=== PATIENT | female | born 1990 | race African-American/Black ===

== ENCOUNTER 2018-09-01 11:59 | Observation (INO) | payer MEDICAID ==
[~2018-09-01] VITALS: Ht 172.7 cm; Wt 72.1 kg
[~2018-09-01 11:59] MED LIST: FERR-43 PO; PREN-88 PO
[2018-09-01] MEDS ORDERED: LACTATED RINGERS 1,000 ML IV SCH (13:20)
[2018-09-01 13:59] LABS: BASOPHILS % 0.3 % (0.0-2.0); HEMATOCRIT. 34.1 % (36.0-48.0); HEMOGLOBIN. 11.2 g/dL (12.0-16.0); LYMPHOCYTES % 13.8 % (20.0-50.0); MEAN CORPUSCULAR HEMOGLOBIN 26.7 pg (28.0-32.0); MEAN CORPUSCULAR VOLUME 81.2 fL (81.0-99.0); MEAN PLATELET VOLUME 9.4 fl (7.4-10.4); MONOCYTES % 11.8 % (2.0-8.0); NEUTROPHILS % 73.1 % (40.0-76.0); PLATELET 211 x1000/uL (130-400); RED CELL DISTRIBUTION WIDTH 15.4 % (11.6-14.6)
[2018-09-01 14:00] LABS: CLARITY URINE CLEAR (CLEAR); COLOR URINE YELLOW (YELLOW); KETONES URINE NEGATIVE (NEGATIVE); LEUKOCYTE ESTERASE URINE 2+ (NEGATIVE); NITRITE URINE NEGATIVE (NEGATIVE); OCCULT BLOOD URINE NEGATIVE (NEGATIVE); PH URINE 6.5 (4.5-8.0); PROTEIN URINE NEGATIVE (NEGATIVE); SPECIFIC GRAVITY URINE 1.018 (1.005-1.030); UROBILINOGEN URINE 0.2 E.U./dL (0.2-1.0)
[2018-09-01] MEDS ORDERED: BETAMETHASONE ACET/BETAMET 30 MG/5 ML VIAL IM NR (14:45)
[2018-09-01 14:50] LABS: *BARBITURATES SCREEN URINE NEGATIVE (NEGATIVE)
[2018-09-01 14:51] LABS: *BENZODIAZEPINES SCREEN URINE NEGATIVE (NEGATIVE); *COCAINE SCREEN URINE NEGATIVE (NEGATIVE); CANNABINOID URINE SCREEN NEGATIVE (NEGATIVE); METHADONE URINE SCREEN NEGATIVE (NEGATIVE); OPIATES URINE SCREEN NEGATIVE (NEGATIVE); PHENCYCLIDINE URINE SCREEN NEGATIVE (NEGATIVE)
[2018-09-01 14:53] LABS: *AMPHETAMINES SCREEN URINE NEGATIVE (NEGATIVE)
[2018-09-01] MEDS: MAGNESIUM 20 G PREMIX (L & D) 500 ML IV SCH (16:01)
[2018-09-01] MEDS ORDERED: CEFAZOLIN 2,000 MG in DEXT 5% WATER 100 ML IV NR (17:00)
[2018-09-01] MEDS: LACTATED RINGERS 1,000 ML IV SCH (20:10)
[2018-09-02 06:23] VITALS: BP 90/52
[2018-09-02] MEDS: MAGNESIUM 20 G PREMIX (L & D) 500 ML IV SCH (06:23)
[2018-09-02] MEDS: LACTATED RINGERS 1,000 ML IV SCH ×2 (06:24→14:12)
[2018-09-02] MEDS ORDERED: BETAMETHASONE ACET/BETAMET 30 MG/5 ML VIAL IM NR (14:00)
== END 2018-09-02 17:00 | disposition home or self-care (01) ==
LOC: L&D 11:59
PROVIDERS: ADMIT Obstetrics & Gynecology; ATTEND Obstetrics & Gynecology
DX: O26.872 Cervical shortening, second trimester (principal); O26.892 Other specified pregnancy related conditions, second trimester; R10.30 Lower abdominal pain, unspecified; M54.5 Low back pain; Z82.49 Family history of ischemic heart disease and other diseases of the circulatory system; Z3A.25 25 weeks gestation of pregnancy
CPT/HCPCS: 36415; 80305; 81003; 83735; 85025; 96365; 96366; 96368; 96372; G0378; J0690; J0702; J3475; 96360; 96361; J7060; J7120

== ENCOUNTER 2018-11-25 18:07 | Inpatient (IN) | payer MEDICAID ==
[~2018-11-25] VITALS: Ht 172.7 cm; Wt 81.6 kg
[2018-11-25] MEDS ORDERED: DEXT 5%/LR + PITOCIN 20UNITS/L 1,000 ML IV SCH (18:29)
[2018-11-25] MEDS ORDERED: METHYLERGONOVINE MALEATE 0.2 MG/ML IM PRN (18:30)
[2018-11-25] MEDS ORDERED: CARBOPROST TROMETHAMINE 250 MCG/ML AMPUL IM PRN (18:30)
[2018-11-25] MEDS ORDERED: LIDOCAINE HCL 1% 20ML VIAL (Pyxis) INJ INFIL SCH (18:30)
[2018-11-25] MEDS ORDERED: BUTORPHANOL TARTRATE 2 MG/ML VIAL IV PRN (18:30)
[2018-11-25] MEDS ORDERED: NALOXONE HCL 0.4 MG/ML 1ML VIAL IM PRN (18:30)
[2018-11-25 19:03] LABS: HEMATOCRIT. 33.4 % (36.0-48.0); MEAN CORPUSCULAR HEMOGLOBIN 26.1 pg (28.0-32.0); MEAN CORPUSCULAR VOLUME 79.3 fL (81.0-99.0); MEAN PLATELET VOLUME 8.9 fl (7.4-10.4); PLATELET 257 x1000/uL (130-400); RED BLOOD CELL COUNT 4.22 mill/uL (4.2-5.4); RED CELL DISTRIBUTION WIDTH 15.7 % (11.6-14.6)
[2018-11-25 19:05] LABS: PARTIAL THROMBOPLASTIN TIME 28.2 sec (23.4-31.0); PROTHROMBIN TIME 9.6 sec (9.1-11.1)
[2018-11-25 19:09] LABS: CLARITY URINE CLEAR (CLEAR); COLOR URINE YELLOW (YELLOW); KETONES URINE NEGATIVE (NEGATIVE); LEUKOCYTE ESTERASE URINE 1+ (NEGATIVE); NITRITE URINE NEGATIVE (NEGATIVE); OCCULT BLOOD URINE NEGATIVE (NEGATIVE); PROTEIN URINE NEGATIVE (NEGATIVE); SPECIFIC GRAVITY URINE 1.014 (1.005-1.030); UROBILINOGEN URINE 0.2 E.U./dL (0.2-1.0)
[2018-11-25] MEDS ORDERED: BUPIVACAINE HCL/NS/PF EPIDURAL 100 ML in SODIUM CHLORIDE 0.9% 100 ML EP NR (19:30)
[2018-11-25 19:36] LABS: HEPATITIS B SURFACE ANTIGEN NEGATIVE
[2018-11-25] MEDS ORDERED: SODIUM CHLORIDE 0.9% 10ML VIAL ONE (19:39)
[2018-11-25] MEDS ORDERED: FENTANYL CITRATE/PF 50MCG/ML 2ML VIAL ONE (19:39)
[2018-11-25] MEDS ORDERED: BUPIVACAINE HCL/PF 0.25% (2.5MG/ML) 10ML ONE (19:39)
[2018-11-25 19:43] LABS: *AMPHETAMINES SCREEN URINE NEGATIVE (NEGATIVE); *BARBITURATES SCREEN URINE NEGATIVE (NEGATIVE); *BENZODIAZEPINES SCREEN URINE NEGATIVE (NEGATIVE); *COCAINE SCREEN URINE NEGATIVE (NEGATIVE); CANNABINOID URINE SCREEN NEGATIVE (NEGATIVE); OPIATES URINE SCREEN NEGATIVE (NEGATIVE)
[2018-11-25 19:44] LABS: METHADONE URINE SCREEN NEGATIVE (NEGATIVE); PHENCYCLIDINE URINE SCREEN NEGATIVE (NEGATIVE)
[2018-11-25] MEDS ORDERED: BUPIVACAINE HCL/NS/PF EPIDURAL 100 ML EP ONE (19:55)
[2018-11-25 20:14] LABS: PLATELET ESTIMATE NORMAL
[2018-11-25] MEDS: LACTATED RINGERS 1,000 ML IV SCH (20:17)
[2018-11-26] MEDS ORDERED: DEXT 5%/LR + PITOCIN 20UNITS/L 1,000 ML IV SCH (00:21)
[2018-11-26] MEDS ORDERED: ACETAMINOPHEN WITH CODEINE 300/30MG TABLET PO PRN (00:30)
[2018-11-26] MEDS ORDERED: IBUPROFEN 800MG TABLET PO PRN (00:30)
[2018-11-26] MEDS ORDERED: RHO(D) IMMUNE GLOBULIN 300 MCG/SYR IM PRN (00:30)
[2018-11-26] MEDS ORDERED: IBUPROFEN 400MG TABLET PO PRN (00:30)
[2018-11-26 01:45] VITALS: BP 111/64
[2018-11-26 02:12] VITALS: BP 114/67
[2018-11-26 02:44] VITALS: BP 110/62
[2018-11-26 05:53] LABS: HEMATOCRIT. 28.5 % (36.0-48.0); HEMOGLOBIN. 9.3 g/dL (12.0-16.0); MEAN CORPUSCULAR VOLUME 79.5 fL (81.0-99.0); PLATELET 234 x1000/uL (130-400); RED BLOOD CELL COUNT 3.59 mill/uL (4.2-5.4); RED CELL DISTRIBUTION WIDTH 15.5 % (11.6-14.6)
[2018-11-26] MEDS ORDERED: KETOROLAC 60MG/2ML VIAL IM ONE (06:15)
[2018-11-26] MEDS ORDERED: HYDROCORTISONE SOD SUCCINATE 100 MG/2 ML VIAL ONE (06:24)
[2018-11-26 08:15] VITALS: BP 114/67
[2018-11-26] MEDS: IBUPROFEN 800MG TABLET PO SCH ×3 (09:13→19:30)
[2018-11-26] MEDS: ACETAMINOPHEN WITH CODEINE 300/30MG TABLET PO SCH ×3 (09:31→17:47)
[2018-11-26] MEDS ORDERED: CAFFEINE 200MG TABLET PO NR (12:13)
[2018-11-26 15:36] VITALS: BP 110/56
[2018-11-26] MEDS: CAFFEINE 200MG TABLET PO SCH ×2 (17:20→21:13)
[2018-11-26 20:00] VITALS: BP 112/61
[2018-11-26] MEDS: LACTATED RINGERS 1,000 ML IV SCH (21:53)
[2018-11-27] MEDS: ACETAMINOPHEN WITH CODEINE 300/30MG TABLET PO SCH ×2 (00:24→05:27)
[2018-11-27] MEDS: CAFFEINE 200MG TABLET PO SCH ×5 (01:25→16:30)
[2018-11-27 03:33] LABS: PLATELET ESTIMATE NORMAL
[2018-11-27 06:00] VITALS: BP 105/59
[2018-11-27 09:00] VITALS: BP 100/51
[2018-11-27] MEDS ORDERED: LIDOCAINE HCL/PF 1% 10 MG/ML 5ML VIAL ONE (15:13)
[2018-11-27] MEDS ORDERED: MIDAZOLAM HCL 2 MG/2 ML VIAL ONE ×3 (15:14→16:10)
[2018-11-27 17:00] VITALS: BP 100/55
[2018-11-27] MEDS ORDERED: AZITHROMYCIN 500 MG TABLET PO NR (18:15)
[2018-11-27 19:25] VITALS: BP 101/58
[2018-11-27] MEDS ORDERED: CAFFEINE 200MG TABLET PO PRN (20:30)
[2018-11-27] MEDS ORDERED: IBUPROFEN 800MG TABLET PO PRN (20:30)
[2018-11-28 08:00] VITALS: BP 93/48
== END 2018-11-28 12:20 | disposition home or self-care (01) | DRG 560 ==
LOC: 8 EST LDRP 18:07 → OBSVTOIN 18:07 → UNDOADMOB 18:07 → 8EST NSY 18:07 → 8EST 11-26 01:15
PROVIDERS: ADMIT Obstetrics & Gynecology; ATTEND Obstetrics & Gynecology
PROC: 10E0XZZ Delivery of Products of Conception, External Approach (ICD-10-PCS; principal; 2018-11-26)
PROC: 00HU33Z Insertion of Infusion Device into Spinal Canal, Percutaneous Approach (ICD-10-PCS; 2018-11-26)
PROC: 3E0R3BZ Introduction of Anesthetic Agent into Spinal Canal, Percutaneous Approach (ICD-10-PCS; 2018-11-26)
PROC: 0HQ9XZZ Repair Perineum Skin, External Approach (ICD-10-PCS; 2018-11-26)
DX: O70.0 First degree perineal laceration during delivery (principal); D64.9 Anemia, unspecified; Z3A.37 37 weeks gestation of pregnancy; R51 Headache; Z37.0 Single live birth; Z82.49 Family history of ischemic heart disease and other diseases of the circulatory system; Z83.3 Family history of diabetes mellitus; Z80.8 Family history of malignant neoplasm of other organs or systems; O75.89 Other specified complications of labor and delivery; O90.81 Anemia of the puerperium
CPT/HCPCS: 36415; 80305; 86592; 86703; 86762; 86850; 86900; 87340; 99281; G0378; J1720; J1885; J2250; J2590; J3010; J3490

== ENCOUNTER 2019-02-14 14:50 | Emergency (ER) | payer MEDICAID, OTHER ==
[~2019-02-14] VITALS: Ht 172.7 cm; Wt 73.0 kg
[~2019-02-14 14:50] MED LIST changes: -PREN-88 PO
[2019-02-14 15:19] VITALS: BP 127/70
== END 2019-02-14 21:00 | disposition left against medical advice (07) ==
LOC: ER 14:50
DX: R10.9 Unspecified abdominal pain (principal); Z53.21 Procedure and treatment not carried out due to patient leaving prior to being seen by health care provider